=== PATIENT | female | born 2000 | race Caucasian/White ===

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

== ENCOUNTER 2022-12-16 12:48 | Emergency (ER) | payer OTHER ==
[~2022-12-16] VITALS: Ht 167.6 cm; Wt 104.5 kg
[~2022-12-16 12:48] MED LIST: ABIL1TAB13 PO; BUPR15TASR PO; BUSP5TA PO; HYDR50TA70 PO; LEXA1TAB2 PO; NICO21PAT TD; VITA500030 PO
[2022-12-16] MEDS ORDERED: HALOPERIDOL 5MG/ML 1ML VIAL IM ONE (13:00)
[2022-12-16] MEDS ORDERED: MIDAZOLAM INJ 2MG/2ML VIAL IM ONE (13:00)
[2022-12-16] MEDS ORDERED: BOOSTRIX VACCINE (TETANUS/DIPHTH/ACEL. PERTUSSIS) 0.5ML SYR IM.IMMUN ONE (13:05)
[2022-12-16] MEDS ORDERED: MIDAZOLAM 5MG/ML 1ML VIAL IM ONE (13:45)
[2022-12-16 14:05] LABS: HEMATOCRIT 40.9 % (36.0-47.0); HEMOGLOBIN 13.4 g/dl (12.0-15.5); MEAN CORPUSCULAR HEMOGLOBIN 28.8 pg (27.0-33.0); MEAN CORPUSCULAR HGB CONC 32.8 g/dl (32.0-36.5); MEAN CORPUSCULAR VOLUME 87.8 fl (80.0-96.0); PLATELET COUNT, AUTOMATED 357 10^3/uL (150-450); RED BLOOD COUNT 4.66 10^6/uL (4.00-5.40); WHITE BLOOD COUNT 10.9 10^3/uL (4.0-10.0)
[2022-12-16 14:28] LABS: ETHYL ALCOHOL (ETHANOL) 0.007 % (0.000-0.010)
[2022-12-16 14:29] LABS: ACETAMINOPHEN LEVEL < 2.0 UG/ML (10.0-20.0); HCG, SERUM QUALITATIVE NEGATIVE (NEGATIVE)
[2022-12-16 14:30] LABS: ALBUMIN 4.2 G/DL (3.2-5.2); ALKALINE PHOSPHATASE 62 U/L (46-116); ALT/SGPT 22 U/L (7.0-40); AST/SGOT 15 U/L (<34); BILIRUBIN,DIRECT 0.2 MG/DL (<0.4); BILIRUBIN,TOTAL 0.5 MG/DL (0.3-1.2); BLOOD UREA NITROGEN 10 MG/DL (9-23); CALCIUM LEVEL 9.7 MG/DL (8.5-10.1); CARBON DIOXIDE LEVEL 25 MMOL/L (20-31); CHLORIDE LEVEL 107 MMOL/L (98-107); CREATININE FOR GFR 0.69 MG/DL (0.55-1.30); GLOMERULAR FILTRATION RATE > 60.0 (>60); GLUCOSE, FASTING 101 MG/DL (60-100); SALICYLATE LEVEL < 3.0 MG/DL (<30); SODIUM LEVEL 141 MMOL/L (136-145); TOTAL PROTEIN 7.7 G/DL (5.7-8.2)
[2022-12-16 14:31] LABS: THYROID STIMULATING HORMONE 1.277 uIU/ML (0.55-4.78)
[2022-12-16 14:49] LABS: AMPHETAMINES LEVEL URINE NEGATIVE (NEGATIVE); BARBITURATES URINE NEGATIVE (NEGATIVE); BENZODIAZEPINES URINE NEGATIVE (NEGATIVE); COCAINE METABOLITE URINE NEGATIVE (NEGATIVE); METHADONE URINE NEGATIVE (NEGATIVE); OPIATES URINE NEGATIVE (NEGATIVE); PHENCYCLIDINE URINE NEGATIVE (NEGATIVE)
[2022-12-16 14:51] LABS: CANNABINOIDS URINE POSITIVE (NEGATIVE)
[2022-12-16] MEDS ORDERED: MED REC IN PROGRESS XX SCH (17:30)
[2022-12-16] MEDS ORDERED: IBUP200T46 PO (17:36)
[2022-12-16] MEDS ORDERED: MELA3TAB30 PO (17:37)
[2022-12-16] MEDS ORDERED: HOME MED LIST COMPLETE! XX SCH (17:45)
[2022-12-17 07:40] VITALS: BP 124/53; TEMP 97.4; O2SAT 99
== END 2022-12-17 07:45 ==
LOC: M ED 12:48
DX: R45.851 Suicidal ideations (principal); Z79.1 Long term (current) use of non-steroidal anti-inflammatories (NSAID); Z79.899 Other long term (current) drug therapy
CPT/HCPCS: 70450; 72125; 80048; 80076; 80143; 80307; 82077; 84443; 84703; 85027; 87635; 90471; 90715; 93005; 96374; 99285; J1630; J2250

== ENCOUNTER 2024-04-03 11:12 | Inpatient (IN) | payer OTHER, SELFPAY ==
[~2024-04-03] VITALS: Ht 167.6 cm; Wt 129.2 kg
[~2024-04-03 11:12] MED LIST changes: +IBUP200T46 PO; +MELA3TAB30 PO
[2024-04-03 12:08] LABS: HEMATOCRIT 43.1 % (36.0-47.0); HEMOGLOBIN 14.4 g/dl (12.0-15.5); MEAN CORPUSCULAR HEMOGLOBIN 28.7 pg (27.0-33.0); MEAN CORPUSCULAR HGB CONC 33.4 g/dl (32.0-36.5); PLATELET COUNT, AUTOMATED 347 10^3/uL (150-450); RED BLOOD COUNT 5.01 10^6/uL (4.00-5.40); WHITE BLOOD COUNT 11.8 10^3/uL (4.0-10.0)
[2024-04-03 12:39] LABS: ETHYL ALCOHOL (ETHANOL) < 0.003 % (0.000-0.010)
[2024-04-03 12:41] LABS: ALBUMIN 4.3 G/DL (3.2-5.2); ALKALINE PHOSPHATASE 65 U/L (35-104); ALT/SGPT 26 U/L (7.0-40); AST/SGOT 21 U/L (<34); BILIRUBIN,DIRECT 0.2 MG/DL (<0.4); BILIRUBIN,TOTAL 0.5 MG/DL (0.3-1.2); BLOOD UREA NITROGEN 9 MG/DL (9-23); CARBON DIOXIDE LEVEL 23 MMOL/L (20-31); CHLORIDE LEVEL 103 MMOL/L (98-107); CREATININE FOR GFR 0.74 MG/DL (0.55-1.30); GLOMERULAR FILTRATION RATE > 60.0 (>60); GLUCOSE, FASTING 86 MG/DL (60-100); POTASSIUM SERUM 4.4 MMOL/L (3.5-5.1); SALICYLATE LEVEL < 3.0 MG/DL (<30); SODIUM LEVEL 139 MMOL/L (136-145); TOTAL PROTEIN 8.9 G/DL (5.7-8.2)
[2024-04-03 12:43] LABS: THYROID STIMULATING HORMONE 2.351 uIU/ML (0.55-4.78)
[2024-04-03 12:45] LABS: HCG, SERUM QUALITATIVE NEGATIVE (NEGATIVE)
[2024-04-03 12:50] LABS: AMPHETAMINES LEVEL URINE NEGATIVE (NEGATIVE); BARBITURATES URINE NEGATIVE (NEGATIVE); BENZODIAZEPINES URINE NEGATIVE (NEGATIVE); COCAINE METABOLITE URINE NEGATIVE (NEGATIVE); METHADONE URINE NEGATIVE (NEGATIVE); OPIATES URINE NEGATIVE (NEGATIVE); PHENCYCLIDINE URINE NEGATIVE (NEGATIVE)
[2024-04-03 12:52] LABS: CANNABINOIDS URINE POSITIVE (NEGATIVE)
[2024-04-03 14:35] VITALS: BP 138/99; TEMP 97.8; O2SAT 99
[2024-04-03] MEDS ORDERED: LORazepam 2 MG/ML 1ML VIAL As Ordered ONE (15:03)
[2024-04-03] MEDS ORDERED: diphenhydrAMINE 50MG/ML VIAL As Ordered ONE (15:04)
[2024-04-03] MEDS ORDERED: HALOPERIDOL LACTATE 5MG/ML VIAL As Ordered ONE (15:04)
[2024-04-03] MEDS: diphenhydrAMINE 50MG/ML VIAL IM STA ×2 (15:11→16:05)
[2024-04-03] MEDS: LORazepam 2 MG/ML 1ML VIAL IM STA (15:11)
[2024-04-03] MEDS: HALOPERIDOL LACTATE 5MG/ML VIAL IM STA ×2 (15:11→16:05)
[2024-04-03] MEDS ORDERED: HOME MED LIST COMPLETE! XX SCH (16:00)
[2024-04-03] MEDS ORDERED: MOM 30ML SUSPENSION UDC PO PRN (22:10)
[2024-04-04 06:42] VITALS: BP 150/70; TEMP 97.6; O2SAT 100
[2024-04-04] MEDS: IBUPROFEN 400MG TAB PO PRN (07:10)
[2024-04-04] MEDS: NICOTINE 14 MG/24 HR TRANSDERMAL TD SCH (09:00)
[2024-04-04] MEDS: OLANZapine 5 MG TAB PO SCH (10:51)
[2024-04-04] MEDS: MULTIVITAMINS/MINERALS THERAP 1 TAB PO SCH (12:15)
[2024-04-04] MEDS: FOLIC ACID 1MG TAB PO SCH (12:16)
[2024-04-04] MEDS: THIAMINE 100 MG TAB PO SCH (12:48)
[2024-04-04 16:49] VITALS: BP_SYST 107; BP_SYST 129; BP_DIAS 63; BP_DIAS 72; TEMP 98.2; O2SAT 99
[2024-04-04] MEDS: diphenhydrAMINE 25MG CAP PO PRN (18:36)
[2024-04-04 19:08] VITALS: BP 134/72
[2024-04-05] MEDS: traZODone 50 MG TAB PO PRN (00:29)
[2024-04-05 06:28] VITALS: BP 146/86; TEMP 98.6; O2SAT 98
[2024-04-05 15:37] VITALS: BP 130/78; TEMP 99.3; O2SAT 97
[2024-04-05] MEDS: OLANZapine 5 MG TAB PO PRN (18:57)
[2024-04-06 06:37] VITALS: BP 132/76; TEMP 97.3; O2SAT 98
[2024-04-06] MEDS: OLANZapine 5 MG TAB PO SCH (08:18)
[2024-04-06 15:07] VITALS: BP 152/80; TEMP 98.2; O2SAT 97
[2024-04-06] MEDS: traZODone 50 MG TAB PO PRN (20:07)
[2024-04-06] MEDS: OLANZapine 10 MG TAB PO SCH (20:07)
[2024-04-07 02:29] VITALS: BP 155/100
[2024-04-07] MEDS: LORazepam 2 MG TAB PO PRN (02:34)
[2024-04-07 06:54] VITALS: BP 123/62; TEMP 97.2; O2SAT 99
[2024-04-07] MEDS: MAALOX 30 ML SUSP *UDC PO PRN (09:32)
[2024-04-07 12:45] VITALS: BP 134/78
[2024-04-07 16:34] VITALS: BP 142/80; TEMP 98.1; O2SAT 100
[2024-04-07] MEDS: OLANZapine 10 MG TAB PO ONE (18:29)
[2024-04-07 21:36] VITALS: BP 148/88
[2024-04-08 06:41] VITALS: BP 134/84; TEMP 97.8; O2SAT 96
[2024-04-08 08:22] VITALS: BP 134/84
[2024-04-08 09:58] VITALS: BP 135/66; TEMP 97.8; O2SAT 98
[2024-04-08 16:23] VITALS: BP 117/56; TEMP 97.1; O2SAT 97
[2024-04-09] MEDS: HALOPERIDOL LACTATE 5MG/ML VIAL IM STA (01:09)
[2024-04-09] MEDS: diphenhydrAMINE 50MG/ML VIAL IM STA (01:09)
[2024-04-09] MEDS: LORazepam 2 MG/ML 1ML VIAL IM STA (01:10)
[2024-04-09 16:05] VITALS: BP 128/84; TEMP 98.9; O2SAT 98
[2024-04-09] MEDS: DIVALPROEX 250MG TAB PO SCH (20:33)
[2024-04-10 15:17] VITALS: BP 129/78; TEMP 97; O2SAT 100
[2024-04-11 06:23] VITALS: BP 158/94; TEMP 97.2; O2SAT 98
[2024-04-11] MEDS: OLANZapine 10 MG TAB PO SCH (08:04)
[2024-04-11 15:47] VITALS: BP 142/63; TEMP 98.2; O2SAT 97
[2024-04-11] MEDS: DIVALPROEX 500 MG TAB PO SCH (20:03)
[2024-04-12 06:41] VITALS: BP 138/86; TEMP 98; O2SAT 98
[2024-04-12] MEDS: DIVALPROEX 250MG TAB PO SCH (08:07)
[2024-04-12 09:21] LABS: KETONE, URINE AUTO RFX NEGATIVE (NEGATIVE); NITRITE, URINE AUTO RFX NEGATIVE (NEGATIVE); RBC, URINE AUTO RFX 2 /HPF (0-3); SQUAM EPITHELIAL CELL UR AURFX 3 /HPF (0-6); WBC, URINE AUTO RFX 4 /HPF (0-3)
[2024-04-12 09:25] LABS: LEUKOCYTE ESTERASE UR AUTO RFX TRACE (NEGATIVE)
[2024-04-12] MEDS: PHENAZOPYRIDINE 100 MG TAB PO SCH (16:14)
[2024-04-12 17:01] VITALS: BP 144/65; TEMP 98.2; O2SAT 97
[2024-04-13 06:35] VITALS: BP 133/70; TEMP 96.8; O2SAT 97
[2024-04-13 14:51] VITALS: BP 133/70; TEMP 96.8; O2SAT 97
[2024-04-13 16:18] VITALS: BP 120/59; TEMP 97.9; O2SAT 97
[2024-04-14] MEDS: ACETAMINOPHEN 325 MG TAB PO PRN (08:28)
[2024-04-14 15:29] VITALS: BP 144/67; TEMP 97.6; O2SAT 99
[2024-04-15 06:37] VITALS: BP 128/80; TEMP 97.8; O2SAT 97
[2024-04-15 15:30] VITALS: BP 142/75; TEMP 97.6; O2SAT 99
[2024-04-16 07:00] VITALS: BP 147/65; TEMP 97; O2SAT 100
[2024-04-16 17:57] VITALS: BP 144/76; TEMP 97.8; O2SAT 98
[2024-04-17 07:13] VITALS: BP 145/85; TEMP 96.9; O2SAT 98
[2024-04-17] MEDS ORDERED: NYST1POW3 TOP (08:18)
[2024-04-17] MEDS ORDERED: NYSTATIN 100,000 UNITS/GM TOPICAL PWD 15GM TOP SCH (09:00)
[2024-04-17] MEDS ORDERED: TRAZ-252 PO (09:05)
[2024-04-17] MEDS ORDERED: DEPA250T32 PO (09:05)
[2024-04-17] MEDS ORDERED: DEPA1TAB3 PO (09:05)
[2024-04-17] MEDS ORDERED: HALO5TAB33 PO (09:05)
[2024-04-17 09:12] VITALS: BP 123/59
[2024-04-17] MEDS: FUROSEMIDE 20 MG TAB PO ONE (09:13)
[2024-04-17 09:18] LABS: BASO % 0.6 % (0.0-1.0); EOS # 0.1 10^3/uL (0.0-0.5); EOS % 1.1 % (0.0-3.0); HEMATOCRIT 43.3 % (36.0-47.0); HEMOGLOBIN 13.8 g/dl (12.0-15.5); LYMPH # 2.5 10^3/uL (1.5-5.0); LYMPH % 35.2 % (24.0-44.0); MEAN CORPUSCULAR HEMOGLOBIN 28.5 pg (27.0-33.0); MEAN CORPUSCULAR HGB CONC 31.9 g/dl (32.0-36.5); MEAN CORPUSCULAR VOLUME 89.5 fl (80.0-96.0); MONO # 0.4 10^3/uL (0.0-0.8); MONO % 5.4 % (2.0-8.0); NEUTROPHILS # 4.1 10^3/uL (1.5-8.5); NEUTROPHILS % 57.4 % (36.0-66.0); PLATELET COUNT, AUTOMATED 319 10^3/uL (150-450); RED BLOOD COUNT 4.84 10^6/uL (4.00-5.40); WHITE BLOOD COUNT 7.2 10^3/uL (4.0-10.0)
[2024-04-17 09:24] LABS: ERYTHROCYTE SEDIMENTATION RATE 35 mm/hr (0-20)
[2024-04-17 09:35] LABS: HEMOGLOBIN A1c 5.1 % (4.0-6.0)
[2024-04-17 09:39] LABS: C REACTIVE PROTEIN QUANTITATIV 0.93 MG/DL (<1.0)
[2024-04-17 09:40] LABS: ALBUMIN 3.8 G/DL (3.2-5.2); ALKALINE PHOSPHATASE 56 U/L (35-104); ALT/SGPT 73 U/L (7.0-40); AST/SGOT 53 U/L (<34); BILIRUBIN,TOTAL 0.3 MG/DL (0.3-1.2); BLOOD UREA NITROGEN 13 MG/DL (9-23); CALCIUM LEVEL 9.6 MG/DL (8.5-10.1); CARBON DIOXIDE LEVEL 26 MMOL/L (20-31); CHLORIDE LEVEL 103 MMOL/L (98-107); CHOLESTEROL LEVEL 182 MG/DL (<200); CHOLESTEROL RISK RATIO 4.07 (<5); CREATININE FOR GFR 0.68 MG/DL (0.55-1.30); GLOMERULAR FILTRATION RATE > 60.0 (>60); GLUCOSE, FASTING 99 MG/DL (60-100); HDL CHOLESTEROL 44.7 MG/DL (>40); LDL CHOLESTEROL 111.5 MG/DL (<100); NON-HDL-C 137.3 MG/DL; POTASSIUM SERUM 4.4 MMOL/L (3.5-5.1); SODIUM LEVEL 141 MMOL/L (136-145); TOTAL PROTEIN 7.8 G/DL (5.7-8.2); TRIGLYCERIDES LEVEL 129 MG/DL (<150)
[2024-04-17 09:41] LABS: LUTEINIZING HORMONE 8.7 mIU/ML; THYROID STIMULATING HORMONE 2.125 uIU/ML (0.55-4.78); THYROXINE (T4) 5.9 UG/DL (4.5-10.9)
[2024-04-17 09:42] LABS: FOLLICLE STIMULATING HORMONE 9.2 mIU/ML; T UPTAKE 34.2 % (22.5-37.0)
[2024-04-17 09:51] LABS: PROCALCITONIN <0.04 ng/ml
[2024-04-18 15:22] LABS: ANA SCREEN, IFA NEGATIVE (NEGATIVE)
== END 2024-04-17 11:09 | disposition home or self-care (01) | DRG 885 ==
LOC: M ED 11:12 → M ED INP 13:23 → M PSY 14:31
PROVIDERS: ADMIT Psychiatry & Neurology Psychiatry; ATTEND Psychiatry & Neurology Psychiatry
DX: F31.2 Bipolar disorder, current episode manic severe with psychotic features (principal); Z68.42 Body mass index [BMI] 45.0-49.9, adult; R45.851 Suicidal ideations; Z91.148 Patient's other noncompliance with medication regimen for other reason; F12.90 Cannabis use, unspecified, uncomplicated; F41.1 Generalized anxiety disorder; F43.10 Post-traumatic stress disorder, unspecified; E66.9 Obesity, unspecified; F10.10 Alcohol abuse, uncomplicated; D72.829 Elevated white blood cell count, unspecified; R45.850 Homicidal ideations; Z78.1 Physical restraint status